=== PATIENT | female | born 1970 | race Asian ===

== ENCOUNTER → 2024-04-15 09:36 | Outpatient (REF) | payer OTHER, SELFPAY | LOC: WDC 09:36 | PROVIDERS: ATTENDING PHYSICIAN Obstetrics & Gynecology; FAMILY PHYSICIAN Nurse Practitioner | DX: Z12.31 Encounter for screening mammogram for malignant neoplasm of breast (principal) | CPT/HCPCS: 77063; 77067 ==

== ENCOUNTER → 2025-04-18 08:55 | Outpatient (REF) | payer OTHER, SELFPAY | LOC: HWWDC 08:55 | PROVIDERS: REFERRING PHYSICIAN Obstetrics & Gynecology | DX: Z12.31 Encounter for screening mammogram for malignant neoplasm of breast (principal) | CPT/HCPCS: 77063; 77067 ==

== ENCOUNTER → 2025-10-15 08:01 | Outpatient (REF) | payer OTHER, SELFPAY | LOC: WDC 08:01 | DX: R92.333 Mammographic heterogeneous density, bilateral breasts (principal) | CPT/HCPCS: 76641 ==

== ENCOUNTER → 2025-10-17 07:37 | Outpatient (REF) | payer OTHER, SELFPAY ==
--- NOTE | 2025-10-17 13:23 | OID.BR.INTR ---
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
- -
Date of Contact: 10/17/25
Met with patient. Will follow up as needed per protocol.
== END ==
LOC: WDC 07:37
DX: N63.42 Unspecified lump in left breast, subareolar (principal)
CPT/HCPCS: 19083; 88305; 88341; 88342; 88360